=== PATIENT | female | born 1950 | race Caucasian/White ===

== ENCOUNTER → 2016-04-10 | Outpatient (CLI) | payer OTHER ==
--- NOTE | 2016-04-10 11:14 | MA ---
Screening Digital Mammogram With iCAD Analysis Clinical Indications: Routine screening. A grandmother was diagnosed with breast cancer in her 60s. T he patient has had a benign right breast biopsy. Technique: Standard cephalocaudal and mediolateral oblique projections were obtained. This examinatio n was processed by the I Do Now I Don'tD computer aided detection system. Comparison: December 2014, October 2013, September 2012, August 2012, July 2011, May 2010, January 2008 . Breast density: A; Fatty. Findings: CAD was reviewed. No masses, suspicious calcifications or other signs of malignancy are id entified. There has been no significant change in the appearance of either breast. Impression: Negative mammogram. BI-RADS 1. Recommendation: Routine mammographic screening in one year as long as physical examination is [facility]ativ [facility]. Negative mammography should not preclude additional workup of a clinically suspicious finding. The patient's information is entered into a reminder system with a target due date for her next mammo gram.
== END ==
LOC: CIMAGING 08:35
DX: Z12.31 Encounter for screening mammogram for malignant neoplasm of breast (principal); Z80.3 Family history of malignant neoplasm of breast
CPT/HCPCS: G0202

== ENCOUNTER 2016-10-08 11:56 | Emergency (ER) | payer OTHER ==
[2016-10-08] MEDS ORDERED: ASPIRIN 81 MG CHEWABLE TAB PO ONE (11:58)
--- NOTE | 2016-10-08 12:10 | CPEKG ---
Heart Rate: 87 RR Interval: 690 P-R Interval: 152 QRSD Interval: 74 QT Interval: 356 QTC Interval: 429 P Afton: 54 QRS Afton: 40 T Wave Afton: 37 EKG Severity - OTHERWISE NORMAL ECG - EKG Impression: SINUS RHYTHM EKG Impression: VENTRICULAR PREMATURE COMPLEX EKG Impression: Agree with above Electronically Signed By: Joshua Willett 10-Oct-2016 10:44:42
[2016-10-08 12:11] VITALS: RESP 16
[2016-10-08] MEDS ORDERED: LORazepam 2 MG/ML INJ IVP ONE (12:23)
[2016-10-08] MEDS ORDERED: NS 1,000 ML IV ONE (12:23)
--- NOTE | 2016-10-08 12:27 | EDPHY ---
H & P Time Seen by Provider: 10/08/16 12:17 HPI/ROS: CHIEF COMPLAINT: Dizziness, "panic attack", chest pain HISTORY OF PRESENT ILLNESS: Patient is a 66-year-old female with a history of anxiety who presents emergency department with multiple complaints. This morning at 9:00 a.m. she felt shaky and dizzy. She felt this was similar to her previous panic attacks. She took an Ativan without relief. An hour ago she developed substernal chest pressure. This is not radiate. It has been constant. She has no shortness of breath or cough. No fevers or chills. No leg pain or swelling. Patient states that she recently perforated her left eardrum and has been followed by ENT specialist. She has had 2 rounds of antibiotics. Patient states that she drinks daily and last drink was last evening. She has no history of alcohol withdrawal. REVIEW OF SYSTEMS: My complete review of systems is negative except as mentioned in the HPI. Past Medical/Surgical History: Includes hypertension, high cholesterol, anxiety, eardrum perforation, melanoma Past surgical history: Knee surgery Social history: Patient does not smoke. She drinks alcohol. She does not use drugs. Smoking Status: Former smoker Physical Exam: Vitals noted. GENERAL: No acute distress, alert. HEENT: Eyes normal to inspection, normal pharynx, no signs of dehydration. Mild tongue tremor. NECK: No thyromegaly, no lymphadenopathy, supple. RESPIRATORY: Clear to auscultation bilaterally, no rales, rhonchi or wheezing. CVS: Regular rate and rhythm, no rubs, murmurs, or gallops. ABDOMEN: Soft, nontender, nondistended, no organomegaly. BACK: Normal to inspection, no CVA tenderness. SKIN: Normal color, no rash, warm, dry. No pallor. EXTREMITIES: No pedal edema, no calf tenderness, no Homans sign or cords, no joint swelling. NEURO/PSYCH: Alert and oriented, normal mood and affect, normal motor sensory exam. No obvious cranial nerve deficit. Hand tremor. Constitutional: Initial Vital Signs Temperature (C) 37 C 10/08/16 12:07 Heart Rate 92 10/08/16 12:07 Respiratory Rate 16 10/08/16 12:07 Blood Pressure 165/104 H 10/08/16 12:07 O2 Sat (%) 96 10/08/16 12:07 O2 Delivery Mode Room Air Allergies/Adverse Reactions: Penicillins Allergy (Verified 10/08/16 12:12) Sulfa (Sulfonamide Antibiotics) Allergy (Verified 01/08/14 10:35) Home Medications: Medication Instructions Recorded Hydrochlorothiazide 08/26/13 LORAZEPAM 08/26/13 Lisinopril 08/26/13 Simvastatin 08/26/13 Cymbalta 10/08/16 Medical Decision Making - Diagnostics EKG Interpretation: EKG shows normal sinus rhythm, normal rate, normal axis, normal intervals. VPC. There are no ST or T-wave abnormalities. EKG is normal as interpreted by me. Imaging Results: Imaging Impressions Chest X-Ray 10/08/16 12:24 Impression: 1. Hyperexpanded lungs suggesting COPD. 2. Ankylosis of the thoracic spine. ED Course/Re-evaluation: In the emergency department I discussed possible etiologies with the patient. I answered all her questions. IV was placed. Laboratory studies, EKG and chest x-ray were ordered. Patient was given aspirin 324 mg orally. Patient was given Ativan 1 mg IV for possible withdrawal symptoms. Patient was given normal saline 1 L IV for hydration. Rechecked the patient after receiving Ativan. She felt much better. Her hand tremor has resolved. She no longer feels anxious. She has no chest pressure. Her symptoms have resolved. Patient's CBC and chemistry were normal. Troponin was negative. Repeat EKG: Normal. Unchanged Repeat troponin negative On recheck the patient was doing well. She had no new complaints. Symptoms have resolved and she is here. She is given warnings prior to leaving. She will return with worsening symptoms. She will follow up with the primary care physician. Differential Diagnosis: My differential includes but is not limited to ACS, acute IA, pneumonia, electrolyte abnormality, sugar abnormality, ear infection, vertigo, alcohol withdrawal, dehydration - Data Points Laboratory Results: Laboratory Results 10/08/16 12:05 10/08/16 12:05 10/08/16 10/08/16 10/08/16 14:00 12:05 12:05 WBC RBC Hgb Hct MCV MCH MCHC RDW Plt Count MPV Neut % (Auto) Lymph % (Auto) Fergus % (Auto) Eos % (Auto) Baso % (Auto) Nucleat RBC Rel Count Absolute Neuts (auto) Absolute Lymphs (auto) Absolute Monos (auto) Absolute Eos (auto) Absolute Basos (auto) Absolute Nucleated RBC Immature Gran % Immature Gran # PT 15.7 SEC H SEC (12.0-15.0) INR 1.28 H (0.83-1.16) APTT 29.2 SEC SEC (23.0-38.0) Sodium 141 mEq/L mEq/L (134-144) Potassium 4.5 mEq/L mEq/L (3.5-5.2) Chloride 105 mEq/L mEq/L (97-110) Carbon Dioxide 20 mEq/l L mEq/l (22-31) Anion Gap 16 mEq/L mEq/L (8-16) BUN 20 mg/dL mg/dL (7-23) Creatinine 0.6 mg/dL mg/dL (0.6-1.0) Estimated GFR > 60 Glucose 89 mg/dL mg/dL (70-100) Calcium 8.9 mg/dL mg/dL (8.5-10.4) Total Bilirubin 0.6 mg/dL mg/dL (0.1-1.4) Conjugated Bilirubin 0.3 mg/dL mg/dL (0.0-0.5) Unconjugated Bilirubin 0.3 mg/dL mg/dL (0.0-1.1) AST 45 IU/L IU/L (14-46) ALT 49 IU/L IU/L (9-52) Alkaline Phosphatase 84 IU/L IU/L (38-126) Troponin I < 0.012 ng/mL ng/mL < 0.012 ng/mL ng/mL (0-0.034) (0-0.034) Total Protein 6.4 g/dL g/dL (6.3-8.2) Albumin 4.0 g/dL g/dL (3.5-5.0) Lipase 115.0 IU/L IU/L (23-300) 10/08/16 12:05 WBC 4.70 10^3/uL 10^3/uL (3.80-9.50) RBC 4.43 10^6/uL 10^6/uL (4.18-5.33) Hgb 13.8 g/dL g/dL (12.6-16.3) Hct 38.3 % % (38.0-47.0) MCV 86.5 fL fL (81.5-99.8) MCH 31.2 pg pg (27.9-34.1) MCHC 36.0 g/dL g/dL (32.4-36.7) RDW 11.9 % % (11.5-15.2) Plt Count 151 10^3/uL 10^3/uL (150-400) MPV 10.6 fL fL (8.7-11.7) Neut % (Auto) 62.5 % % (39.3-74.2) Lymph % (Auto) 26.2 % % (15.0-45.0) Fergus % (Auto) 7.7 % % (4.5-13.0) Eos % (Auto) 2.1 % % (0.6-7.6) Baso % (Auto) 0.6 % % (0.3-1.7) Nucleat RBC Rel Count 0.0 % % (0.0-0.2) Absolute Neuts (auto) 2.94 10^3/uL 10^3/uL (1.70-6.50) Absolute Lymphs (auto) 1.23 10^3/uL 10^3/uL (1.00-3.00) Absolute Monos (auto) 0.36 10^3/uL 10^3/uL (0.30-0.80) Absolute Eos (auto) 0.10 10^3/uL 10^3/uL (0.03-0.40) Absolute Basos (auto) 0.03 10^3/uL 10^3/uL (0.02-0.10) Absolute Nucleated RBC 0.00 10^3/uL 10^3/uL (0-0.01) Immature Gran % 0.9 % % (0.0-1.1) Immature Gran # 0.04 10^3/uL 10^3/uL (0.00-0.10) PT INR APTT Sodium Potassium Chloride Carbon Dioxide Anion Gap BUN Creatinine Estimated GFR Glucose Calcium Total Bilirubin Conjugated Bilirubin Unconjugated Bilirubin AST ALT Alkaline Phosphatase Troponin I Total Protein Albumin Lipase Medications Given: Discontinued Medications Aspirin (Aspirin) 162 mg PO EDNOW ONE Stop: 10/08/16 11:59 Last Admin: 10/08/16 11:56 Dose: 162 mg Sodium Chloride (Ns) 1,000 mls @ 0 mls/hr IV ONCE ONE; Wide Open PRN Reason: Protocol Stop: 10/08/16 12:24 Last Admin: 10/08/16 12:40 Dose: 1,000 mls Lorazepam (Ativan Injection) 1 mg IVP EDNOW ONE Stop: 10/08/16 12:24 Last Admin: 10/08/16 12:40 Dose: 1 mg Departure - Departure Disposition: Home, Routine, Self-Care Clinical Impression: Chest pain Qualifiers: Chest pain type: unspecified Qualified Code(s): R07.9 - Chest pain, unspecified Withdrawal symptoms, alcohol Qualifiers: Complication of substance-induced condition: uncomplicated Qualified Code(s): F10.230 - Alcohol dependence with withdrawal, uncomplicated Condition: Good Instructions: Chest Pain (ED) Additional Instructions: Return with increasing anxiety, chest pain, shortness of breath, or any other complaints. Referrals: Melvina Dick MD [Primary Care Provider] - 1-2 days without fail
[2016-10-08 12:34] LABS: INR 1.28 (0.83-1.16); PROTIME(PATIENT) 15.7 SEC (12.0-15.0)
[2016-10-08 12:35] LABS: APTT 29.2 SEC (23.0-38.0)
[2016-10-08 12:36] LABS: % IMMATURE GRANULYOCYTES 0.9 % (0.0-1.1); ABSOLUTE IMMATURE GRANULOCYTES 0.04 10^3/uL (0.00-0.10); ADD DIFF? NO; ADD MORPH? NO; ADD SCAN? NO; ATYPICAL LYMPHOCYTE FLAG 0 (0-99); FRAGMENT RBC FLAG 0 (0-99); HEMATOCRIT 38.3 % (38.0-47.0); HEMOGLOBIN 13.8 g/dL (12.6-16.3); LEFT SHIFT FLG 0 (0-99); LIPEMIA HEMOLYSIS FLAG 90 (0-99); MEAN CELL HEMOGLOBIN 31.2 pg (27.9-34.1); MEAN CELL VOLUME 86.5 fL (81.5-99.8); MEAN PLATELET VOLUME 10.6 fL (8.7-11.7); PLATELET CLUMPS FLAG 10 (0-99); PLATELET COUNT 151 10^3/uL (150-400); RED BLOOD CELL COUNT 4.43 10^6/uL (4.18-5.33); RED CELL DISTRIBUTION WIDTH 11.9 % (11.5-15.2)
[2016-10-08 12:45] LABS: ALANINE AMINOTRANSFERASE 49 IU/L (9-52); ALKALINE PHOSPHATASE 84 IU/L (38-126); ANION GAP 16 mEq/L (8-16); ASPARTATE AMINOTRANSFERASE 45 IU/L (14-46); BILIRUBIN,TOTAL 0.6 mg/dL (0.1-1.4); BILIRUBIN-CONJUGATED 0.3 mg/dL (0.0-0.5); BILIRUBIN-UNCONJUGATED 0.3 mg/dL (0.0-1.1); CALCIUM 8.9 mg/dL (8.5-10.4); CARBON DIOXIDE 20 mEq/l (22-31); CHLORIDE 105 mEq/L (97-110); CREATININE 0.6 mg/dL (0.6-1.0); GLOMERULAR FILTRATION RATE > 60; GLUCOSE 89 mg/dL (70-100); POTASSIUM 4.5 mEq/L (3.5-5.2); SODIUM 141 mEq/L (134-144); TOTAL PROTEIN 6.4 g/dL (6.3-8.2)
[2016-10-08 12:49] LABS: TROPONIN I < 0.012 ng/mL (0-0.034)
--- NOTE | 2016-10-08 14:06 | CPEKG ---
Heart Rate: 83 RR Interval: 723 P-R Interval: 156 QRSD Interval: 78 QT Interval: 368 QTC Interval: 433 P Cochran: 50 QRS Cochran: 31 T Wave Cochran: 15 EKG Severity - NORMAL ECG - EKG Impression: SINUS RHYTHM EKG Impression: No significant change from October 08, 2016, 12:01, except for the lack of a PVC. Electronically Signed By: Joshua Willett 10-Oct-2016 10:44:24
[2016-10-08 14:56] VITALS: PULSE 85; TEMP 98.2
[2016-10-08 15:03] VITALS: BP 151/70; O2SAT 94
== END 2016-10-08 14:55 | disposition home or self-care (01) ==
LOC: CED 11:56
DX: R07.9 Chest pain, unspecified (principal); F10.230 Alcohol dependence with withdrawal, uncomplicated; I10 Essential (primary) hypertension; E86.9 Volume depletion, unspecified; Z87.891 Personal history of nicotine dependence
CPT/HCPCS: 71020; 93005; 96361; 96374; 99285; J2060; 80048-PO; 80076-PO; 83690-PO; 84484-PO; 85025-PO; 85610-PO; 85730-PO

== ENCOUNTER → 2017-05-07 | Outpatient (CLI) | payer OTHER | LOC: CIMAGING 09:57 | PROVIDERS: ATTEND Internal Medicine | DX: Z12.31 Encounter for screening mammogram for malignant neoplasm of breast (principal); Z80.3 Family history of malignant neoplasm of breast ==

== ENCOUNTER → 2018-05-20 | Outpatient (CLI) | payer OTHER | LOC: CIMAGING 10:21 | PROVIDERS: ATTEND Nurse Practitioner Family | DX: Z12.31 Encounter for screening mammogram for malignant neoplasm of breast (principal); Z80.3 Family history of malignant neoplasm of breast ==